=== PATIENT | male | born 1930 | race Caucasian/White ===

== ENCOUNTER → 2017-05-06 | Outpatient (CLI) | payer MEDICARE | END | disposition home or self-care (01) | LOC: SHCH 08:23 | PROVIDERS: ATTEND Internal Medicine Cardiovascular Disease | DX: I10 Essential (primary) hypertension (principal) | CPT/HCPCS: 93975 ==

== ENCOUNTER → 2017-05-10 | Outpatient (CLI) | payer MEDICARE | END | disposition home or self-care (01) | LOC: RAH 13:00 | PROVIDERS: ATTEND Internal Medicine Cardiovascular Disease | DX: G31.9 Degenerative disease of nervous system, unspecified (principal); G91.2 (Idiopathic) normal pressure hydrocephalus | CPT/HCPCS: 70450 ==

== ENCOUNTER 2018-03-19 06:34 | Day surgery (SDC) | payer MEDICARE ==
[2018-03-17 14:49] LABS: BASOPHILS % (AUTO) 0.5 % (0.0-5.0); EOSINOPHILS % (AUTO) 0.9 % (0.0-8.0); HEMATOCRIT 46.9 % (42-54); LYMPHOCYTES % (AUTO) 27.5 % (21.0-51.0); MEAN CORPUSCULAR HEMOGLOBIN 28.8 pg (27.0-33.0); MEAN CORPUSCULAR HGB CONC 32.8 g/dL (32.0-36.0); MEAN CORPUSCULAR VOLUME 87.7 fL (79-99); MONOCYTES % (AUTO) 12.4 % (3.0-13.0); NEUTROPHILS % (AUTO) 58.7 % (40.0-77.0); PLATELET COUNT (AUTO) 186 K/uL (130-400); RED BLOOD CELL COUNT(AUTO) 5.35 MIL/uL (4.50-6.20); RED CELL DISTRIBUTION WIDTH 16.1 % (11.0-15.5); WHITE BLOOD COUNT (AUTO) 8.6 K/uL (4.8-10.8)
[2018-03-17 15:00] LABS: CREATININE 1.3 mg/dL (0.5-1.5)
[2018-03-17 15:02] LABS: INR 1.05 (0.85-1.15); PARTIAL THROMBOPLASTIN TIME 29.2 SEC (26.3-35.5)
[2018-03-17 15:16] VITALS: BP 150/75
[2018-03-19] VITALS (12 sets, daily range): BP systolic 90–139; BP diastolic 53–80
[~2018-03-19] VITALS: Ht 177.8 cm; Wt 88.3 kg
[~2018-03-19 06:34] MED LIST: ACET-2900 PO; AMLO5TAB7 PO; APIX5TAB PO; CHOL200026 PO; CLON0.1T PO; FINA5TAB41 PO; SODIUM CHLORIDE 0.9% 1000ML 1,000 ML IV SCH; TAMS0.4C32 PO; TRIA10.8 NS; VIT-5 PO
[2018-03-19] MEDS ORDERED: BUPIVACAINE/PF 0.25% 50ML VIAL IJ ONE (11:36)
[2018-03-19] MEDS ORDERED: LIDOCAINE HCL 1% MDV 50ML VIAL ONE (11:36)
[2018-03-19] MEDS ORDERED: CEFAZOLIN SODIUM 1 GM VIAL ONE (11:37)
[2018-03-19] MEDS ORDERED: MEPERIDINE-PF 25 MG/ML SYG ONE ×3 (11:46→12:33)
[2018-03-19] MEDS ORDERED: MIDAZOLAM HCL 1 MG/ML 2ML VIAL ONE ×3 (11:46→12:33)
[2018-03-19] MEDS ORDERED: CLINDAMYCIN 600 MG/D5% WATER 100 ML IV ONE (11:59)
[2018-03-19] MEDS ORDERED: THROMBIN-JMI 5000 UNIT/VIAL TP ONE (12:46)
[2018-03-19] MEDS ORDERED: ACETAMINOPHEN-CODEINE 300/30MG TAB PO PRN (13:15)
[2018-03-19] MEDS ORDERED: ACETAMINOPHEN 325 MG TAB PO PRN (13:15)
[2018-03-19] MEDS ORDERED: CLINDAMYCIN 600 MG/D5% WATER 50 ML IV SCH (19:00)
== END 2018-03-19 19:40 | disposition home or self-care (01) ==
LOC: DAH 06:34
PROVIDERS: ATTEND Internal Medicine Cardiovascular Disease
DX: T82.897A Other specified complication of cardiac prosthetic devices, implants and grafts, initial encounter (principal); I48.2 Chronic atrial fibrillation; Z98.890 Other specified postprocedural states; Z95.0 Presence of cardiac pacemaker; Z79.899 Other long term (current) drug therapy; N40.0 Benign prostatic hyperplasia without lower urinary tract symptoms; I10 Essential (primary) hypertension; Z88.8 Allergy status to other drugs, medicaments and biological substances; Z88.2 Allergy status to sulfonamides; I45.9 Conduction disorder, unspecified
CPT/HCPCS: 33222; 36415; 80048; 85025; 85610; 85730; 93005; J2175 ×3; J2250 ×3; J3490 ×5; 99156; 99157; J0690